=== PATIENT | female | born 2000 | race Caucasian/White ===

== ENCOUNTER 2019-07-10 16:06 | Emergency (ER) | payer OTHER, SELFPAY ==
--- NOTE | ~2019-07-10 | US_ITS ---
EXAMINATION: US pelvic complete w TV DATE: 07/10/2019 17:15 INDICATION: Vaginal bleeding Comparison:No prior studies for comparison. TECHNIQUE: Multiple transabdominal and endovaginal sonographic images of the pelvis performed. FINDINGS: The uterus measures 7 x 3.6 x 2.6 cm. The endometrial complex measures 2 mm. No evidence fo r intrauterine . The right ovary measures 1.4 x 1.6 x 1.2 cm and the left ovary measures 1.6 x 1.6 x 1.5 cm. There ar e small follicles in each ovary. There is no free fluid in the pelvis. There are no abnormal masses seen on either side. IMPRESSION: 1. Normal pelvic ultrasound. No evidence for intrauterine . Reviewed, dictated and finalized at location [facility]
[2019-07-10 16:22] VITALS: BP 146/97; PULSE 98; RESP 16; TEMP 36.4; O2SAT 98
[2019-07-10 16:45] LABS: Basophils Percent Auto 0.4 % (0.2-1.2); Eosinophils Absolute Auto 0.1 K/mm3 (0-0.3); Hematocrit 43.1 % (37.0-47.0); Hemoglobin 14.7 g/dL (12.0-15.0); Immature Granulocyte Absolute 0.03 K/mm3 (0.00-0.031); Immature Granulocyte Percent A 0.4 % (0-0.5); Lymphocytes Absolute Auto 1.61 K/mm3 (0.9-3.2); Lymphocytes Percent Auto 22.7 % (18.3-44.2); Mean Corpuscular HGB Conc 34.1 g/dl (32-36); Mean Corpuscular Hemoglobin 30.2 pg (26-34); Mean Corpuscular Volume 88.5 fl (80-100); Mean Platelet Volume 10.8 fl (7.4-10.4); Monocytes Absolute Auto 0.5 K/mm3 (0.1-0.6); Monocytes Percent Auto 7.3 % (2.6-8.5); Neutrophils Absolute Auto 4.8 K/mm3 (1.3-6.7); Neutrophils Percent Auto 68.2 % (45.5-73.1); Platelet Count Result 325 k/mm3 (150-375); Red Blood Count 4.87 M/mm3 (4.2-5.4); Red Cell Distribution Width 11.9 % (11.5-14.5); White Blood Count 7.1 K/mm3 (4.5-10.0)
[2019-07-10 17:15] LABS: Beta HCG Quantitative < 2.39 mIU/ML
--- NOTE | 2019-07-10 18:55 | ED.FEMALEGU ---
HPI - Female Genitourinary General Chief complaint: Vaginal Bleeding Stated complaint: vag bleeding 11 days Time Seen by Provider: 07/10/19 18:53 Source: patient Mode of arrival: ambulatory Limitations: no limitations History of Present Illness HPI Narrative: The pt is a 18 y/o female who presents to the ED c/o heavy vaginal bleeding onset 11 days ago. Pt states that the bleeding has progressively worsening, and has been using tampons. She states that nothing improves or worsens her bleeding. She states that she saw a physician at [facility], who recommended she come to the ED for an ultrasound to determine if she had an ectopic or infection. Pt reports nausea, ABD pain, and dizziness, but denies vomiting, SOB, and vaginal discharge. Pt states that she is not . elicited complaint: vaginal bleeding Onset (ago): day(s) (11) Vaginal discharge: none Vaginal bleeding: heavy Exacerbating factors: none Relieving factors: none Associated symptoms: abdominal pain, nausea and other (Dizziness) Patient : No Related Data Home Medications Medication Instructions Recorded Confirmed drospirenone-ethinyl estradiol tablet 07/10/19 [Lisaanvi (28)] sertraline mg 07/10/19 Allergies Allergy/AdvReac Type Severity Reaction Status Date / Time No Known Allergies Allergy Verified 07/10/19 18:55 Review of Systems Review of Systems: Narrative: Review of Systems Respiratory: Negative for shortness of breath. Gastrointestinal: Positive for abdominal pain and nausea. Negative for vomiting. Genitourinary: Positive for vaginal bleeding. Negative for vaginal discharge. Neurological: Positive for dizziness. All systems reviewed & are unremarkable except as noted in HPI and below PMFSH Past Medical History Medical History (Updated 07/10/19 @ 19:43 by Fariha Foster MD) Healthy adult Surgical History Surgical History (Updated 07/10/19 @ 19:06 by Jah Chambers) Surgical history unknown Social History Social History (Updated 07/10/19 @ 19:06 by Jah Chambers) Smoking status: Unknown if ever smoked Exam Narrative: Exam Narrative: Constitutional: Appears well-developed. No distress. HENT: Head: Normocephalic. Nose: Nose normal. Mouth/Throat: Oropharynx is clear and moist. Eyes: Conjunctiva are normal. Neck: Normal range of motion. Neck supple. Cardiovascular: Normal rate and regular rhythm. Pulmonary/Chest: Effort normal and breath sounds normal. Abdominal: Soft. There is no tenderness. Musculoskeletal: Normal range of motion. No edema. Neurological: Alert and oriented to person, place, and time. Skin: Skin is warm. No pallor. Psychiatric: Normal mood and affect. Course Vital Signs Vital signs: Vital Signs Temperature 36.4 C 07/10/19 16:22 Pulse Rate 98 07/10/19 16:22 Respiratory Rate 16 07/10/19 16:22 Blood Pressure 146/97 H 07/10/19 16:22 Pulse Oximetry 98 07/10/19 16:22 Temperature 36.4 C 07/10/19 16:22 Pulse Rate 90 07/10/19 19:24 Respiratory Rate 17 07/10/19 19:24 Blood Pressure 130/88 07/10/19 19:24 Pulse Oximetry 97 07/10/19 19:24 MDM - Female Genitourinary Lab Data Result diagrams: 07/10/19 16:33 Labs: Lab Results 07/10/19 07/10/19 07/10/19 Range/Units 16:33 16:33 16:33 WBC 7.1 (4.5-10.0) K/mm3 RBC 4.87 (4.2-5.4) M/mm3 Hgb 14.7 (12.0-15.0) g/dL Hct 43.1 (37.0-47.0) % MCV 88.5 (80-100) fl MCH 30.2 (26-34) pg MCHC 34.1 (32-36) g/dl RDW 11.9 (11.5-14.5) % Plt Count 325 (150-375) k/mm3 MPV 10.8 H (7.4-10.4) fl Immature Gran % (Auto) 0.4 (0-0.5) % Neut % (Auto) 68.2 (45.5-73.1) % Lymph % (Auto) 22.7 (18.3-44.2) % [place] % (Auto) 7.3 (2.6-8.5) % Eos % (Auto) 1.0 (0-4.4) % Baso % (Auto) 0.4 (0.2-1.2) % Lymph # (Auto) 1.61 (0.9-3.2) K/mm3 [place] # (Auto) 0.5 (0.1-0.6) K/mm3 Eos # (Auto) 0.1 (0-0.3) K/mm3 Baso
[2019-07-10 19:24] VITALS: BP 130/88; PULSE 90; RESP 17; O2SAT 97
[2019-07-10 19:24] LABS: Add Urine Microscopic? YES; Appearance Urine Clear (Clear); Bacteria Urine Trace /hpf; Bilirubin Urine Negative (Negative); Blood Urine Negative (Negative); Color Urine Yellow (Yellow); Glucose Urine UA Negative (Negative); Ketones Urine 2+ mg/dL (Negative); Leukocyte Esterase Ur Negative LEU/UL (Negative); Mucus Urine Rare /lpf; Nitrate Urine Negative (Negative); Protein Urine Negative (Negative); Specific Grav Ur 1.024 (1.001-1.035); Squamous Epithelial Cell Urine Occasional /hpf (Few); Urobilinogen Urine Negative mg/dL (<2.0); WBC Urine 0-3 /hpf
[2019-07-10 19:45] VITALS: BP 131/87; PULSE 88; RESP 15; O2SAT 96
== END 2019-07-10 19:45 | disposition home or self-care (01) ==
PROVIDERS: Emergency Provider Emergency Medicine
DX: N92.0 Excessive and frequent menstruation with regular cycle (principal)
CPT/HCPCS: 36415; 76830; 76856; 81001; 81025; 84702; 85025; 99284

== ENCOUNTER 2021-04-22 00:15 | Emergency (ER) | payer OTHER, SELFPAY ==
[2021-04-22 00:19] VITALS: BP 145/100; PULSE 90; RESP 18; TEMP 36.3; O2SAT 100
[2021-04-22] MEDS: LORazepam INJ (*CRX) 2 MG/ML VIAL 0.5 MG IV PUSH (00:57)
[2021-04-22] MEDS: SODIUM CHLORIDE 0.9% IV 1,000 ML 999 ML IV CONT (00:57)
[2021-04-22 01:01] LABS: Basophils Percent Auto 0.5 % (0.2-1.2); Eosinophils Absolute Auto 0.1 K/mm3 (0-0.3); Eosinophils Percent Auto 2.3 % (0-4.4); Hematocrit 31.6 % (37.0-47.0); Hemoglobin 10.7 g/dL (12.0-15.0); Immature Granulocyte Absolute 0.01 K/mm3 (0.00-0.031); Immature Granulocyte Percent A 0.2 % (0-0.5); Lymphocytes Percent Auto 38.6 % (18.3-44.2); Mean Corpuscular HGB Conc 33.9 g/dl (32-36); Mean Corpuscular Hemoglobin 29.2 pg (26-34); Mean Corpuscular Volume 86.3 fl (80-100); Monocytes Absolute Auto 0.5 K/mm3 (0.1-0.6); Monocytes Percent Auto 8.1 % (2.6-8.5); Neutrophils Absolute Auto 3.1 K/mm3 (1.3-6.7); Neutrophils Percent Auto 50.3 % (45.5-73.1); Platelet Count Result 266 k/mm3 (150-375); Red Blood Count 3.66 M/mm3 (4.2-5.4); Red Cell Distribution Width 12.3 % (11.5-14.5); White Blood Count 6.2 K/mm3 (4.5-10.0)
[2021-04-22 01:13] LABS: Alanine Aminotransferase 12 U/L (4-35); Albumin Level 3.8 g/dL (3.5-5.1); Alkaline Phosphatase 38 U/L (38-126); Anion Gap 5 mmol/L (8-16); Aspartate Amino Transferase 22 U/L (14-36); Bilirubin,Total 0.3 mg/dL (0.2-1.3); Blood Urea Nitrogen 9 mg/dL (7-17); Calcium 9.4 mg/dL (8.4-10.2); Carbon Dioxide 28 mmol/L (22-30); Chloride 106 mmol/L (98-107); Estimated Glomerular Filt Rate > 60; Glucose 99 mg/dL (65-110); Magnesium 2.1 mg/dL (1.6-2.3); Potassium 3.9 mmol/L (3.4-5.0); Sodium 139 mmol/L (137-145)
[2021-04-22] MEDS: LORazepam INJ (*CRX) 2 MG/ML VIAL 1 MG IV PUSH (01:42)
[2021-04-22] MEDS: POTASSIUM CHLORIDE 20 MEQ PACKET (FOR LIQUID) 40 MEQ PO (01:44)
--- NOTE | 2021-04-22 02:14 | ED.GENADULT ---
HPI - General Adult General Chief complaint: Unspecified Stated complaint: Unable to sleep, restless legs Time Seen by Provider: 04/22/21 00:33 History of Present Illness HPI narrative: Patient is a 20-year-old female presents the emergency department with chief complaint of restless legs. Patient states that she was seen in urgent care given some hydroxyzine and discharged home. Patient states that tonight her legs have been jumping and she is not able to sleep. Patient denies chest pain denies shortness of breath denies nausea vomiting diarrhea. The patient reports she has no prior history of electrolyte abnormalities. Related Data Home Medications Medication Instructions Recorded Confirmed drospirenone-ethinyl estradiol tablet 07/10/19 [Yessy (28)] sertraline mg 07/10/19 cyclobenzaprine mg 04/22/21 gabapentin 04/22/21 hydroxyzine HCl 04/22/21 Allergies Allergy/AdvReac Type Severity Reaction Status Date / Time No Known Allergies Allergy Verified 04/22/21 00:21 Review of Systems Review of Systems: A 10 system review of systems was completed on the patient and is negative except for what is stated in the HPI. Nursing and ancillary documentation was reviewed. [facility] Past Medical History Medical History Healthy adult Surgical History Surgical History Surgical history unknown Family History Family History Other Diabetes mellitus Social History Social History Smoking status: Unknown if ever smoked Exam Narrative: GENERAL: Well-appearing, well-nourished, and in no acute distress. HEAD: Normocephalic, atraumatic. EYES: PERRLA and EOMI. ENT: Nares clear, no rhinorrhea or epistaxis. Mucous membranes moist. NECK: Supple. CHEST: Clear to auscultation. No respiratory distress. HEART: Regular rate and rhythm. No murmur heard. Normal peripheral pulses. ABDOMEN: Soft, nontender, nondistended, normal active bowel sounds. EXTREMITIES: Normal range of motion. No edema. SKIN: Warm, dry, no rash. NEURO: No focal deficits. Alert and oriented x3. PSYCH: Normal mood and affect. Course Vital Signs Vital signs: Vital Signs Temperature 36.3 C L 04/22/21 00:19 Pulse Rate 90 04/22/21 00:19 Respiratory Rate 18 04/22/21 00:19 Blood Pressure 145/100 H 04/22/21 00:19 Pulse Oximetry 100 04/22/21 00:19 Temperature 36.3 C L 04/22/21 00:19 Pulse Rate 90 04/22/21 00:19 Respiratory Rate 18 04/22/21 00:19 Blood Pressure 145/100 H 04/22/21 00:19 Pulse Oximetry 100 04/22/21 00:19 Medical Decision Making Vital Signs Vital Signs: Vital Signs Temperature 36.3 C L 04/22/21 00:19 Pulse Rate 90 04/22/21 00:19 Respiratory Rate 18 04/22/21 00:19 Blood Pressure 145/100 H 04/22/21 00:19 Pulse Oximetry 100 04/22/21 00:19 Temperature 36.3 C L 04/22/21 00:19 Pulse Rate 90 04/22/21 00:19 Respiratory Rate 18 04/22/21 00:19 Blood Pressure 145/100 H 04/22/21 00:19 Pulse Oximetry 100 04/22/21 00:19 Lab Data Result diagrams: 04/22/21 00:55 04/22/21 00:55 Labs: Lab Results 04/22/21 04/22/21 Range/Units 00:55 00:55 WBC 6.2 (4.5-10.0) K/mm3 RBC 3.66 L (4.2-5.4) M/mm3 Hgb 10.7 L D (12.0-15.0) g/dL Hct 31.6 L (37.0-47.0) % MCV 86.3 (80-100) fl MCH 29.2 (26-34) pg MCHC 33.9 (32-36) g/dl RDW 12.3 (11.5-14.5) % Plt Count 266 (150-375) k/mm3 MPV 11.0 H (7.4-10.4) fl Immature Gran % (Auto) 0.2 (0-0.5) % Neut % (Auto) 50.3 (45.5-73.1) % Lymph % (Auto) 38.6 (18.3-44.2) % [place] % (Auto) 8.1 (2.6-8.5) % Eos % (Auto) 2.3 (0-4.4) % Baso % (Auto) 0.5 (0.2-1.2) % Lymph # (Auto) 2.40 (0.9-3.2) K/mm3 [place] # (Auto)
[2021-04-22 02:30] VITALS: BP 114/65; PULSE 84; RESP 18; O2SAT 100
== END 2021-04-22 02:30 | disposition home or self-care (01) ==
PROVIDERS: Emergency Provider Emergency Medicine
DX: G25.81 Restless legs syndrome (principal)
CPT/HCPCS: 36415; 80053; 83735; 85025; 96361; 96374; 96376; 99284; A9270; J2060; J7030

== ENCOUNTER 2021-05-06 22:44 | Emergency (ER) | payer OTHER, SELFPAY ==
[2021-05-06 22:50] VITALS: BP 150/115; PULSE 106; RESP 18; TEMP 36.9; O2SAT 98
--- NOTE | 2021-05-06 23:04 | ED.GENADULT ---
HPI - General Adult General Chief complaint: Psychiatric Symptoms <José Miguel Loving MD - Last Filed: 05/07/21 06:57> Stated complaint: SI <José Miguel Loving MD - Last Filed: 05/07/21 06:57> Time Seen by Provider: 05/06/21 22:56 <José Miguel Loving MD - Last Filed: 05/07/21 06:57> History of Present Illness HPI narrative: Is a 20-year-old female presents to emergency department with chief complaint of depression and suicidal thoughts. Patient reports she has been under a lot of stress lately and reports that she has been having intermittent thoughts of harming herself. Patient states she does not currently have an active plan reports she has done some superficial cutting most recently a few weeks ago. The patient states that she has not tried to harm herself today reports that symptoms or not improved by anything or they worsened by anything. <José Miguel Loving MD - Last Filed: 05/07/21 06:57> Related Data Home medications: Home Medications Medication Instructions Recorded Confirmed drospirenone-ethinyl estradiol 1 tablet PO DAILY 07/10/19 05/07/21 [Frantzvi (28)] sertraline 100 mg PO DAILY 07/10/19 05/07/21 cyclobenzaprine 5 mg PO DAILY 04/22/21 05/07/21 gabapentin 300 mg PO BID 04/22/21 05/07/21 hydroxyzine pamoate 50 mg PO HS 05/07/21 05/07/21 <José Miguel Loving MD - Last Filed: 05/07/21 06:57> Allergies/adverse reactions: Allergies Allergy/AdvReac Type Severity Reaction Status Date / Time No Known Allergies Allergy Verified 05/07/21 00:32 <José Miguel Loving MD - Last Filed: 05/07/21 06:57> Review of Systems Review of Systems: A 10 system review of systems was completed on the patient and is negative except for what is stated in the HPI. Nursing and ancillary documentation was reviewed. <José Miguel Loving MD - Last Filed: 05/07/21 06:57> [facility] Past Medical History Medical History: Medical History Healthy adult <José Miguel Loving MD - Last Filed: 05/07/21 06:57> Surgical History Surgical History: Surgical History Surgical history unknown <José Miguel Loving MD - Last Filed: 05/07/21 06:57> Family History Family History: Family History Other Diabetes mellitus <José Miguel Loving MD - Last Filed: 05/07/21 06:57> Social History Social History: Social History Smoking status: Unknown if ever smoked Substance use type: does not use <José Miguel Loving MD - Last Filed: 05/07/21 06:57> Exam Narrative: GENERAL: Well-appearing, well-nourished, and in no acute distress. HEAD: Normocephalic, atraumatic. EYES: PERRLA and EOMI. ENT: Nares clear, no rhinorrhea or epistaxis. Mucous membranes moist. NECK: Supple. CHEST: Clear to auscultation. No respiratory distress. HEART: Regular rate and rhythm. No murmur heard. Normal peripheral pulses. ABDOMEN: Soft, nontender, nondistended, normal active bowel sounds. EXTREMITIES: Normal range of motion. No edema. SKIN: Warm, dry, no rash. NEURO: No focal deficits. Alert and oriented x3. PSYCH: Normal mood and affect. <José Miguel Loving MD - Last Filed: 05/07/21 06:57> Course Course Emergency Course: Patient is medically cleared for psychiatric evaluation, and placement and transportation Patient was seen by the screener and the plan will be for voluntary psychiatric admission Currently we are waiting on acceptance at a inpatient psychiatric facility I will be sending her care to the day provider <José Miguel Loving MD - Last Filed: 05/07/21 06:57> Reevaluation(s) Reevaluation #1: Patient feeling tired, requesting a tablet of Ativan to help her to sle
--- NOTE | 2021-05-06 23:20 | PC.NURSE ---
Pt has been having some issues with Mother and sister, worse over the last few months. from pt statement, it sounds as though mother is very controlling of pt, pt never seems to be good enough in mother's eyes. 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 Pt has tried to limit contact with mother but it has not helped. Grandmother a few months ago and mother attempted to have an intervention on the day of the , to let pt know that mother did not like pt's new boyfriend. 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 Pt has had thoughts of suicide, but never made a plan. pt states that she got into a big argument with mother this weekend and pt has been having increased thought of suicide but still does not have a plan. just felt very lost and wanted some help.
[2021-05-06 23:33] LABS: Basophils Percent Auto 0.3 % (0.2-1.2); Eosinophils Absolute Auto 0.1 K/mm3 (0-0.3); Hematocrit 39.3 % (37.0-47.0); Hemoglobin 12.9 g/dL (12.0-15.0); Immature Granulocyte Absolute 0.02 K/mm3 (0.00-0.031); Immature Granulocyte Percent A 0.3 % (0-0.5); Lymphocytes Absolute Auto 1.75 K/mm3 (0.9-3.2); Lymphocytes Percent Auto 24.9 % (18.3-44.2); Mean Corpuscular HGB Conc 32.8 g/dl (32-36); Mean Corpuscular Hemoglobin 28.5 pg (26-34); Mean Corpuscular Volume 86.8 fl (80-100); Monocytes Absolute Auto 0.4 K/mm3 (0.1-0.6); Monocytes Percent Auto 6.1 % (2.6-8.5); Neutrophils Absolute Auto 4.7 K/mm3 (1.3-6.7); Neutrophils Percent Auto 67.4 % (45.5-73.1); Platelet Count Result 365 k/mm3 (150-375); Red Blood Count 4.53 M/mm3 (4.2-5.4); Red Cell Distribution Width 12.7 % (11.5-14.5)
[2021-05-06 23:44] LABS: Ethanol < 10 mg/dL (<10)
[2021-05-06 23:45] LABS: Alanine Aminotransferase 17 U/L (4-35); Albumin Level 4.6 g/dL (3.5-5.1); Alkaline Phosphatase 58 U/L (38-126); Anion Gap 7 mmol/L (8-16); Aspartate Amino Transferase 28 U/L (14-36); Bilirubin,Total 0.4 mg/dL (0.2-1.3); Blood Urea Nitrogen 13 mg/dL (7-17); Calcium 9.7 mg/dL (8.4-10.2); Carbon Dioxide 29 mmol/L (22-30); Chloride 103 mmol/L (98-107); Estimated CRCL calculation 102 ml/min; Estimated Glomerular Filt Rate > 60; Glucose 96 mg/dL (65-110); Potassium 3.7 mmol/L (3.4-5.0); Sodium 139 mmol/L (137-145)
[2021-05-06 23:52] LABS: Add Urine Microscopic? YES; Appearance Urine Cloudy (Clear); Bilirubin Urine Negative (Negative); Blood Urine Negative (Negative); Color Urine Straw (Yellow); Glucose Urine UA Negative (Negative); Ketones Urine Negative (Negative); Leukocyte Esterase Ur Negative LEU/UL (Negative); Nitrate Urine Negative (Negative); Protein Urine Negative (Negative); Squamous Epithelial Cell Urine Rare /hpf (Few); Urobilinogen Urine Negative mg/dL (<2.0); WBC Urine 0-3 /hpf
[2021-05-07 00:11] LABS: Amphetamine Screen Urine Negative (Negative); Barbiturate Screen Urine Negative (Negative); Benzodiazepines Screen Urine Negative (Negative); Cannabinoid Screen Urine Negative (Negative); Cocaine Screen Urine Negative (Negative); Methadone Screen Urine Negative (Negative); Opiate Screen Urine Negative (Negative); Phencyclidine Screen Urine Negative (Negative)
[2021-05-07 00:25] LABS: Acetaminophen < 10 ug/mL (10-30); Salicylate < 1.0 mg/dL (2-20)
--- NOTE | 2021-05-07 01:35 | PC.NURSE ---
pt medically cleared and crisis may be called at this time.
--- NOTE | 2021-05-07 01:38 | PC.NURSE ---
crisis notified and will send someone for evaluation
[2021-05-07] MEDS: IBUPROFEN 400 MG TABLET 800 MG PO (01:47)
[2021-05-07] MEDS: GABAPENTIN 300 MG CAPSULE PO (01:49)
[2021-05-07] MEDS: CYCLOBENZAPRINE HCL 10 MG TABLET 5 MG PO (01:53)
[2021-05-07] MEDS: SERTRALINE HCL 50 MG TABLET 100 MG PO (02:17)
[2021-05-07 02:22] LABS: EDCOVIDSCREEN Negative (Negative)
--- NOTE | 2021-05-07 02:54 | PC.NURSE ---
crisis called again. worker is driving in, i will give her another call.
[2021-05-07] MEDS: hydrOXYzine pamoate 25 MG CAPSULE 50 MG PO (05:17)
--- NOTE | 2021-05-07 06:09 | PC.NURSE ---
DISCUSSED WITH DR PRADO-PT DOES NOT NEED A SITTER .
--- NOTE | 2021-05-07 06:09 | PC.NURSE ---
per ERP pt no longer needs sitter. Crisis has been in to speak to with pt and pt would like to be admitted to [facility] in [place]. information faxed at this time.
[2021-05-07 07:27] VITALS: BP 107/71; PULSE 73; RESP 16; O2SAT 99
--- NOTE | 2021-05-07 07:40 | PC.NURSE ---
Pt resting on stretcher. Pt denies any active suicidal ideations at this time. Pt would still like to be transferred for voluntary inpatient psych. Pt is calm and cooperative. Offered breakfast; pt declined at this time.
--- NOTE | 2021-05-07 09:17 | PC.NURSE ---
Breakfast tray ordered for pt.
--- NOTE | 2021-05-07 10:02 | PC.NURSE ---
Called Crisis for update. Per Ondina Byrd, there are no updates at this time. Chart was faxed to [facility] this morning. Will call back when updates are available.
--- NOTE | 2021-05-07 13:32 | PC.NURSE ---
Pt resting on stretcher. Still awaiting updates from crisis.
--- NOTE | 2021-05-07 13:47 | PC.NURSE ---
Pt offered lunch. Pt declined.
--- NOTE | 2021-05-07 13:51 | PC.NURSE ---
Crisis has still not called back with update. Called and spoke with [facility] intake directly. Pt's referral had gotten misplaced and was not reviewed. Referral is being reviewed now. Will call back with update.
--- NOTE | 2021-05-07 14:43 | PC.NURSE ---
Updated labs and vital signs faxed to [facility].
[2021-05-07] MEDS: LORazepam (*CRX) 0.5 MG TABLET 1 MG PO (15:24)
--- NOTE | 2021-05-07 17:26 | PC.NURSE ---
[facility] called for update. They still did not receive labs and COVID. Re-faxed to [phone].
[2021-05-07 17:40] VITALS: BP 127/77; PULSE 93; RESP 16; O2SAT 98
--- NOTE | 2021-05-07 18:18 | PC.NURSE ---
Called [facility] to verify they received fax. No answer; voicemail left requesting call back.
--- NOTE | 2021-05-07 18:34 | PC.NURSE ---
Pt accepted to [facility] by Dr.Shazia Kingsley. Associate Artistic Director will call back with bed assignment and number for nurse to nurse report.
--- NOTE | 2021-05-07 20:10 | PC.NURSE ---
[facility] called and states they have a bed number [id number].
--- NOTE | 2021-05-07 20:26 | PC.NURSE ---
called and gave nurse to nurse report. Gave to Jenna HARPER
== END 2021-05-07 22:17 ==
PROVIDERS: Emergency Medicine; Emergency Provider Emergency Medicine
DX: F32.A Depression, unspecified (principal); R45.851 Suicidal ideations; Z20.822 Contact with and (suspected) exposure to COVID-19
CPT/HCPCS: 36415; 80053; 80307; 81001; 81025; 84443; 85025; 87426; 99285; A9270; C9803

== ENCOUNTER 2021-07-18 10:31 | Outpatient (CLI) | payer OTHER, SELFPAY ==
[2021-07-18 11:57] LABS: Basophils Percent Auto 0.5 % (0.2-1.2); Eosinophils Absolute Auto 0.1 K/mm3 (0-0.3); Eosinophils Percent Auto 1.5 % (0-4.4); Hematocrit 39.6 % (37.0-47.0); Hemoglobin 12.6 g/dL (12.0-15.0); Immature Granulocyte Absolute 0.01 K/mm3 (0.00-0.031); Immature Granulocyte Percent A 0.2 % (0-0.5); Lymphocytes Absolute Auto 1.56 K/mm3 (0.9-3.2); Lymphocytes Percent Auto 28.3 % (18.3-44.2); Mean Corpuscular HGB Conc 31.8 g/dl (32-36); Mean Corpuscular Hemoglobin 27.3 pg (26-34); Mean Corpuscular Volume 85.9 fl (80-100); Mean Platelet Volume 11.9 fl (7.4-10.4); Monocytes Absolute Auto 0.4 K/mm3 (0.1-0.6); Monocytes Percent Auto 7.4 % (2.6-8.5); Neutrophils Absolute Auto 3.4 K/mm3 (1.3-6.7); Neutrophils Percent Auto 62.1 % (45.5-73.1); Platelet Count Result 309 k/mm3 (150-375); Red Blood Count 4.61 M/mm3 (4.2-5.4); Red Cell Distribution Width 16.5 % (11.5-14.5); White Blood Count 5.5 K/mm3 (4.5-10.0)
[2021-07-18 12:36] LABS: Iron 95 ug/dL (37-170); Percent Iron Saturation 24 % (20-50)
== END 2021-07-18 10:32 | disposition home or self-care (01) ==
DX: D64.9 Anemia, unspecified (principal); E61.1 Iron deficiency; E55.9 Vitamin D deficiency, unspecified
CPT/HCPCS: 36415; 82306; 82728; 83540; 83550; 85025

== ENCOUNTER 2021-12-13 18:33 | Emergency (ER) | payer OTHER, SELFPAY ==
[2021-12-13 18:39] VITALS: BP 125/76; PULSE 88; RESP 18; TEMP 36.4; O2SAT 99
--- NOTE | 2021-12-13 19:48 | ED.GENADULT ---
HPI - General Adult General Chief complaint: Skin/Abscess/Foreign Body Stated complaint: Bump on head Time Seen by Provider: 12/13/21 18:58 Source: patient Mode of arrival: ambulatory Limitations: no limitations History of Present Illness HPI narrative: Patient is a 21-year-old female who presents the ED with report of a tender lesion to the back of her head. Patient reports she woke up Saturday morning with a small tender lump on her L occipital scalp. She denies any falls or hitting her head against anything. She does note she laid in the grass on Saturday night and could have sustained a bug bite. Denies any itching to her scalp however. She states the lump has become more tender over the last couple days. She went to an urgent care today and was referred here for further evaluation. They did not look at her scalp at the urgent care. Patient denies any neurologic symptoms, fever, chills, Hx of abscesses or rashes. Related Data Home Medications Medication Instructions Recorded Confirmed drospirenone 3 mg-ethinyl 1 tablet PO DAILY 07/10/19 05/07/21 estradiol 0.02 mg tablet (Gianvi (28)) sertraline 100 mg tablet 100 mg PO DAILY 07/10/19 05/07/21 cyclobenzaprine 5 mg tablet 5 mg PO DAILY 04/22/21 05/07/21 gabapentin 300 mg capsule 300 mg PO BID 04/22/21 05/07/21 hydroxyzine pamoate 50 mg capsule 50 mg PO HS 05/07/21 05/07/21 Allergies Allergy/AdvReac Type Severity Reaction Status Date / Time No Known Allergies Allergy Verified 05/07/21 00:32 Review of Systems Review of Systems: CONSTITUTIONAL: Denies fever, chills. EYES: Denies visual changes. CARDIOVASCULAR: Denies chest pain. RESPIRATORY: Denies cough or dyspnea. GASTROINTESTINAL: Denies abdominal pain, nausea, vomiting. SKIN: Reports tender lump to L posterior scalp. Denies rash or itching. MUSCULOSKELETAL: Denies back pain, joint pain, or myalgia. NEUROLOGIC: Denies headache, numbness, tingling, slurred speech, dysphagia, confusion, or weakness. All systems reviewed & are unremarkable except as noted in HPI and below PMFSH Past Medical History Medical History (Updated 12/14/21 @ 04:08 by Jimena Salas PA-C) ADHD Anxiety Depression Healthy adult Neuropathy Surgical History Surgical History (Updated 12/14/21 @ 04:08 by Jimena Salas PA-C) History of appendectomy History of hand surgery Family History Family History Other Diabetes mellitus Social History Social History (Updated 12/14/21 @ 04:09 by Jimena Salas PA-C) Smoking status: Never smoker Substance use type: does not use Exam Narrative: GENERAL: Well appearing, well-nourished, non-toxic, in no acute distress. HEAD: Normocephalic, atraumatic. Small area of mild tenderness to patient's left occipital scalp, but no definitive lump/bump/lesion identified in left occipital region. Scalp not erythematous, warm. No rashes, nodules, abscesses, cysts. No inflamed hair follicles. Normal coloration of scalp. EYES: PERRLA, EOMI, conjunctive clear bilaterally. NECK: Supple. No adenopathy, no masses. RESPIRATORY: Airway patent, respirations nonlabored. CARDIOVASCULAR: Regular rate and rhythm without murmurs, rubs, or gallops. Radial pulses 2+ and equal bilaterally. MUSCULOSKELETAL: Moves all extremities. Strength/ROM intact without gross deformities. SKIN: Warm, dry, normal color. No rashes. NEURO: A&O X3. Speech clear. Cranial nerves II-XII grossly intact. Steady gait. No ataxic movements. PSYCHIATRIC: Appropriate mood and affect. Normal interaction. Course Vital Signs Vital signs: Vital Signs Temperature 97.6 F 12/13/21 18:39 Pulse Rate 88 12/13/21 18:39 Respiratory Rate 18 12/13/21 18:39 Blood Pressure 125/76 12/13/21 18:39 Pulse Oximetry 99 12/13/21 18:39 Temperature 97.6 F 12/13/21 18:39 Pulse Rate 88 12/13/21 18:39 Respiratory Rate 18 12/13/21 18:39 Blood Pressure 125/76
[2021-12-13] MEDS: KETOROLAC (*BKC) 60 MG/2 ML VIAL IM (20:16)
== END 2021-12-13 21:02 | disposition home or self-care (01) ==
PROVIDERS: Emergency Provider Emergency Medicine
DX: R51.9 Headache, unspecified (principal); F90.9 Attention-deficit hyperactivity disorder, unspecified type; F41.9 Anxiety disorder, unspecified; F32.9 Major depressive disorder, single episode, unspecified
CPT/HCPCS: 96372; 99283; J1885